=== PATIENT | female | born 1960 | race Caucasian/White ===

== ENCOUNTER → 2017-02-17 | Outpatient (CLI) | payer MEDICAID, BC ==
[2017-02-17 07:34] LABS: Basophils # (A) 0.1 k/uL (0-0.2); Basophils % (A) 1 %; Eosinophils # (A) 0.1 k/uL (0-0.7); Eosinophils % (A) 2 %; HCT 41.7 % (34.0-46.0); HDW 2.97; HGB 14.7 gm/dL (11.4-16.0); Luc # (Auto) 0.18; Luc % (Auto) 3; Lymphocytes # (A) 1.8 k/uL (1.0-4.8); Lymphocytes % (A) 31 %; MCH 30.4 pg (25.0-35.0); MCHC 35.2 g/dL (31.0-37.0); MCV 86.4 fL (80.0-100.0); Mean Platelet Volume 6.5; Monocytes # (A) 0.4 k/uL (0-1.0); Monocytes % (A) 7 %; Neutrophils # (A) 3.2 k/uL (1.3-7.7); Neutrophils % (A) 56 %; RBC 4.83 m/uL (3.80-5.40); WBC 5.7 k/uL (3.8-10.6); WBC (Perox) 5.69
[2017-02-17 07:52] LABS: ALT 42 U/L (9-52); AST 28 U/L (14-36); Alkaline Phosphatase 73 U/L (38-126); Anion Gap 9 mmol/L; Blood Urea Nitrogen 15 mg/dL (7-17); Calcium 9.6 mg/dL (8.4-10.2); Carbon Dioxide 29 mmol/L (22-30); Chloride 104 mmol/L (98-107); Cholesterol 162 mg/dL (<200); Glucose 92 mg/dL (74-99); HDL Cholesterol 39 mg/dL (40-60); Non-African American GFR(MDRD) >60 (>60 ml/min/1.73 sqM); Potassium 4.2 mmol/L (3.5-5.1); Sodium 142 mmol/L (137-145); Total Bilirubin 0.8 mg/dL (0.2-1.3); Total Protein 7.3 g/dL (6.3-8.2); Triglycerides 304 mg/dL (<150)
== END | disposition home or self-care (01) ==
LOC: LABWHC1 06:51
PROVIDERS: ATTEND Family Medicine
DX: Z00.00 Encounter for general adult medical examination without abnormal findings (principal); E55.9 Vitamin D deficiency, unspecified
CPT/HCPCS: 36415; 80053; 80061; 82306; 84443; 85025

== ENCOUNTER → 2017-03-18 | Outpatient (CLI) | payer MEDICAID, BC ==
--- NOTE | 2017-03-18 10:20 | BD ---
EXAMINATION TYPE: MG DEXA axial skeleton. DATE OF EXAM: 03/18/2017 CLINICAL HISTORY: Z78.0 POST MENOPAUSAL Height: 63 inches Weight: 134 FRAX RISK QUESTIONS: Alcohol (3 or more units per day): no Family History (Parent hip fracture): no Glucocorticoids (More than 3mos): no (Ex: prednisone, prednisolone, methylprednisolone, dexamethasone, and hydrocortisone). History of Fracture in Adulthood: no Secondary Osteoporosis: 1. Type 1 Diabetes: no 2. Hyperthyroidism: no 3. Menopause before 45: yes 4. Malnutrition: no 5. Chronic liver disease: no Rheumatoid Arthritis: no Current Tobacco Use: no RISK FACTORS HISTORY OF: Hip Fracture (Right/Left): no Spine Fracture: no History of Wrist Fracture: no Surgery to Spine/Hip(right/left)/Wrist (right/left): no Family History of Osteoporosis: yes, sister Active: yes Diet low in dairy products/other sources of calcium: yogart serving about every other day Postmenopausal woman: yes Take estrogen and/or progesterone medications: no Lost more than 2 inches in height since high school: no Frequent falls: no Poor Health: no Hyperparathyroidism: no Adrenal Insufficiency: no MEDICATIONS: Prednisone or other steroids: no Thyroid Medications: no Osteoporosis Medications: possibly, unsure Which medication:p[ossibly Fosamax How Long: about a year or less Additional Medications: Vitamin D EXAM MEASUREMENTS: Bone mineral densitometry was performed using the [employer] System. Bone mineral density as measured about the Lumbar spine is: ----- L1-L4(G/cm2): 0.880 T Score Values are as follows: ----- L2: -2.8 ----- L3: -2.4 ----- L4: -2.8 ----- L1-L4: -2.5 Bone mineral density has: Decreased -8.6% since study of: 01/25/2012 Bone mineral density about the R hip (g/cm2): 0.758 Bone mineral density about the L hip (g/cm2): 0.756 T Score values are as follows: -----R Neck: -2.0 -----L Neck: -2.0 -----R Total: -1.9 -----L Total: -2.0 Bone mineral density has: Decreased -4.9% since study of: 01/25/2012 IMPRESSION: Osteopenia (T Score between -2.5 and -1 as noted by T score values L3, Bilateral Necks & Bilatera l Totals There is slightly increased risk of fracture and the patient may be considered for treatment. Re-Screen 2-5 years. Osteoporosis (T Score less than -2.5) as noted by T Score values at the L2 & L4 There is increased fracture risk and therapy is usually indicated based on age. Re-Screen 1-2 years. NOTE: T-SCORE=SD OF THE YOUNG ADULT MEAN.
== END | disposition home or self-care (01) ==
LOC: RADBDWWP 09:17
PROVIDERS: ATTEND Family Medicine
DX: M85.80 Other specified disorders of bone density and structure, unspecified site (principal); M81.0 Age-related osteoporosis without current pathological fracture; Z78.0 Asymptomatic menopausal state
CPT/HCPCS: 77080

== ENCOUNTER → 2017-11-29 | Outpatient (CLI) | payer MEDICAID, BC ==
--- NOTE | 2017-11-30 10:55 | MR ---
EXAMINATION TYPE: MR ankle RT wo con DATE OF EXAM: 11/29/2017 COMPARISON: NONE HISTORY: Right ankle pain for one month with congenital pes planus deformity Standard multiplanar, multisequence MRI departmental protocol Multiplanar, multisequence images of the right ankle were acquired. FINDINGS: Distal Achilles tendon is intact. There is some intermediate signal and thickening of the p lantar fascia at inferior calcaneal attachment with surrounding fluid this is seen best sagittal imag es 9 and 10. The peroneal tendons are likely intact. There is difficulty visualizing distal PL tendon which is bes t seen on sagittal and coronal images. Flexor tendons posterior medially are intact. Mild fluid surrounds PT tendon at level of the subtalar joint seen best sagittal image 6 and axial image 11. Normal sinus tarsi fat is present. Some heterogeneity of bone marrow signal intensity is felt to refl ect red marrow reconversion. No suspicious edema is noted. Ankle mortise symmetry is maintained. No s ignificant soft tissue swelling or joint effusion is present. The anterior tibiofibular and anterior talofibular ligaments are intact. The medial deltoid ligament is intact. Hindfoot and midfoot articulations are maintained. IMPRESSION: MRI findings consistent with plantar fasciitis as detailed above. Possible mild tenosynovitis PT tend on. No ligamentous or tendon tear identified.
== END | disposition home or self-care (01) ==
LOC: RADMRIMAIN 11:00
PROVIDERS: ATTEND Orthopaedic Surgery
DX: M79.671 Pain in right foot (principal); Q66.7 Congenital pes cavus

== ENCOUNTER → 2018-01-01 | Outpatient (CLI) | payer MEDICAID, BC ==
[2018-01-01 10:57] LABS: HCT 40.6 % (34.0-46.0); HGB 14.7 gm/dL (11.4-16.0); Hyperchromasia Slight; MCH 30.2 pg (25.0-35.0); MCHC 36.2 g/dL (31.0-37.0); MCV 83.4 fL (80.0-100.0); Mean Platelet Volume 6.4; Platelet Count 203 k/uL (150-450); RBC 4.87 m/uL (3.80-5.40); RDW 12.5 % (11.5-15.5); WBC 6.6 k/uL (3.8-10.6)
[2018-01-01 11:11] LABS: ALT 41 U/L (9-52); AST 27 U/L (14-36); Albumin 4.6 g/dL (3.5-5.0); Alkaline Phosphatase 59 U/L (38-126); Anion Gap 13 mmol/L; Blood Urea Nitrogen 16 mg/dL (7-17); Calcium 9.8 mg/dL (8.4-10.2); Carbon Dioxide 29 mmol/L (22-30); Chloride 102 mmol/L (98-107); Creatine Kinase 79 U/L (30-135); Glucose 85 mg/dL (74-99); Sodium 144 mmol/L (137-145); Total Bilirubin 0.4 mg/dL (0.2-1.3); Total Protein 7.1 g/dL (6.3-8.2)
[2018-01-01 11:27] LABS: Creatine Kinase MB 0.6 ng/mL (0.0-2.4); Troponin I <0.012 ng/mL (0.000-0.034)
== END | disposition home or self-care (01) ==
LOC: LABMAIN 09:17
PROVIDERS: ATTEND Emergency Medicine
DX: R07.9 Chest pain, unspecified (principal)
CPT/HCPCS: 36415; 80053; 82550; 82553; 84443; 84484; 85027

== ENCOUNTER 2018-09-24 07:49 | Emergency (ER) | payer BC, MEDICAID ==
[2018-09-24 07:53] VITALS: TEMP 97.5
[2018-09-24] MEDS ORDERED: MECLIZINE 25 MG TAB PO STA (08:11)
[2018-09-24] MEDS ORDERED: ONDANSETRON 4 MG/2 ML VIAL IVP STA (08:11)
[2018-09-24] MEDS ORDERED: DIAZEPAM 5 MG/ML 2 ML INJ IVP STA (08:11)
--- NOTE | 2018-09-24 08:13 | ED ---
General Adult HPI - General Chief complaint: Dizziness Stated complaint: Vertigo Time Seen by Provider: 09/24/18 07:50 Source: patient, RN notes reviewed Mode of arrival: wheelchair Limitations: no limitations - History of Present Illness Initial comments: This is a 57-year-old female presents emergency Department with a past medical history significant for vertigo. Patient states last night at 6:00 the room started to spin and she has been dealing with the spinning is since that time. Patient states is extremely nauseated. Patient states if she stays still and keeps her eyes shut the symptoms are better but not gone. Patient denies any headache patient denies any numbness or weakness. Patient states she can open her eyes because room still moving. Patient denies any chest pain palpitations difficulty breathing shortness of breath. Patient denies any abdominal pain. Patient denies any recent fever chills. - Related Data Home Medications Medication Instructions Recorded Confirmed Ca/D3/Mag/Zinc/Deshawn/Dion/Mgbor 1 each PO DAILY 09/23/15 09/24/18 [Caltrate 600+D3+Min Chew Tab] Krill/Om-3/Dha/Epa/Phospho/Ast 1 each PO DAILY 09/23/15 09/24/18 [[place]-3 Krill Oil 300 mg Sfgl] Multivitamins, Thera [Theragran] 1 each PO DAILY 09/23/15 09/24/18 Ibuprofen [Motrin Ib] 400 mg PO Q6H PRN 09/24/18 09/24/18 Previous Rx's Medication Instructions Recorded Meclizine [Antivert] 25 mg PO TID #20 tab 09/24/18 Allergies Allergy/AdvReac Type Severity Reaction Status Date / Time Penicillins Allergy Unknown Verified 09/24/18 08:19 Review of Systems ROS Statement: Those systems with pertinent positive or pertinent negative responses have been documented in the HPI. ROS Other: All systems not noted in ROS Statement are negative. Past Medical History Additional Past Medical History / Comment(s): back/neck pain History of Any Multi-Drug Resistant Organisms: None Reported Past Surgical History: Hysterectomy Past Psychological History: No Psychological Hx Reported Smoking Status: Never smoker Past Alcohol Use History: None Reported Past Drug Use History: None Reported General Exam - General Exam Comments Initial Comments: GENERAL: Patient is well-developed and well-nourished. Patient is nontoxic and well- hydrated and is in moderate distress. ENT: Neck is soft and supple. No significant lymphadenopathy is noted. Oropharynx is clear. Moist mucous membranes. Neck has full range of motion without eliciting any pain. EYES: The sclera were anicteric and conjunctiva were pink and moist. Extraocular movements were intact and pupils were equal round and reactive to light. Eyelids were unremarkable. PULMONARY: Unlabored respirations. Good breath sounds bilaterally. No audible rales rhonchi or wheezing was noted. CARDIOVASCULAR: There is a regular rate and rhythm without any murmurs gallops or rubs. ABDOMEN: Soft and nontender with normal bowel sounds. No palpable organomegaly was noted. There is no palpable pulsatile mass. SKIN: Skin is clear with no lesions or rashes and otherwise unremarkable. NEUROLOGIC: Patient is alert and oriented x3. Cranial nerves II through XII are grossly intact. Motor and sensory are also intact. Normal speech, volume and content. Symmetrical smile. Initially patient is unable to do cerebellar testing because she can't open her eyes long enough. MUSCULOSKELETAL: Normal extremities with adequate strength and full range of motion. LYMPHATICS: No significant lymphadenopathy is noted PSYCHIATRIC: Normal psychiatric evaluation. Limitations: no limitations Course Vital Signs 09/24/18 09/24/18 09/24/18 07:50 08:02 08:30 Temperature 97.5 F L Pulse Rate 77 85 74 Respiratory 18 31 H 23 Rate Blood Pressure 164/88 150/92 O2 Sat by Pulse 100 67 L Oximetry 09/24/18 09/24/18 09/24/18 09:00 09:30 10:00 Temperature Pulse Rate 66 65 65 Respiratory 18 20 15 Rate Blood Pressure 147/91 137/84 130/81 O2 Sat by Pulse 99 98 Oximetry 09/24/18 09/24/18 10:30 11:00 Temperature Pulse Rate 64 63 Respiratory 17 21 Rate Blood Pressure 129/77 152/84 O2 Sat by Pulse 98 Oximetry Medical Decision Making - Medical Decision Making EKG shows normal sinus rhythm at 67 bpm NH interval is 166 QRS is 90 QT interval 438 QTC is 462. Patient's EKG shows no ST segment elevation or depression or T wave abnormalities are noted. Computed tomography scan of the brain shows no acute abnormality. Patient felt better after the Antivert and Valium. Patient still had some dizziness I gave her scopolamine patch. Patient was able to ambulate but still felt somewhat dizzy but could not go home at this time. - Lab Data Result diagrams: 09/24/18 08:12 09/24/18 08:12 Lab Results 09/24/18 09/24/18 09/24/18 Range/Units 08:12 08:12 08:12 WBC 6.8 (3.8-10.6) k/uL RBC 5.15 (3.80-5.40) m/uL Hgb 15.3 (11.4-16.0) gm/dL Hct 43.8 (34.0-46.0) % MCV 85.0 (80.0-100.0) fL MCH 29.7 (25.0-35.0) pg MCHC 35.0 (31.0-37.0) g/dL RDW 12.8 (11.5-15.5) % Plt Count 197 (150-450) k/uL Neutrophils % 63 % Lymphocytes % 28 % Monocytes % 5 % Eosinophils % 1 % Basophils % 1 % Neutrophils # 4.3 (1.3-7.7) k/uL Lymphocytes # 1.9 (1.0-4.8) k/uL Monocytes # 0.3 (0-1.0) k/uL Eosinophils # 0.1 (0-0.7) k/uL Basophils # 0.0 (0-0.2) k/uL PT (9.0-12.0) sec INR (<1.2) APTT (22.0-30.0) sec Sodium 141 (137-145) mmol/L Potassium 3.9 (3.5-5.1) mmol/L Chloride 106 (98-107) mmol/L Carbon Dioxide 23 (22-30) mmol/L Anion Gap 12 mmol/L BUN 15 (7-17) mg/dL Creatinine 0.57 (0.52-1.04) mg/dL Est GFR (CKD-EPI)AfAm >90 (>60 ml/min/1.73 sqM) Est GFR (CKD-EPI)NonAf >90 (>60 ml/min/1.73 sqM) Glucose 119 H (74-99) mg/dL Calcium 10.2 (8.4-10.2) mg/dL Magnesium 1.7 (1.6-2.3) mg/dL Total Bilirubin 0.5 (0.2-1.3) mg/dL AST 32 (14-36) U/L ALT 48 (9-52) U/L Alkaline Phosphatase 68 (38-126) U/L Total Creatine Kinase 65 (30-135) U/L CK-MB (CK-2) 0.4 (0.0-2.4) ng/mL CK-MB (CK-2) Rel Index 0.6 Troponin I <0.012 (0.000-0.034) ng/mL Total Protein 7.4 (6.3-8.2) g/dL Albumin 4.7 (3.5-5.0) g/dL Urine Color Urine Appearance (Clear) Urine pH (5.0-8.0) Ur Specific [place] (1.001-1.035) Urine Protein (Negative) Urine Glucose (UA) (Negative) Urine Ketones (Negative) Urine Blood (Negative) Urine Nitrite (Negative) Urine Bilirubin (Negative) Urine Urobilinogen (<2.0) mg/dL Ur Leukocyte Esterase (Negative) Urine WBC (0-5) /hpf Ur Squamous Epith Cells (0-4) /hpf Amorphous Sediment (None) /hpf Urine Mucus (None) /hpf 09/24/18 09/24/18 Range/Units 08:12 10:45 WBC (3.8-10.6) k/uL RBC (3.80-5.40) m/uL Hgb (11.4-16.0) gm/dL Hct (34.0-46.0) % MCV (80.0-100.0) fL MCH (25.0-35.0) pg MCHC (31.0-37.0) g/dL RDW (11.5-15.5) % Plt Count (150-450) k/uL Neutrophils % % Lymphocytes % % Monocytes % % Eosinophils % % Basophils % % Neutrophils # (1.3-7.7) k/uL Lymphocytes # (1.0-4.8) k/uL Monocytes # (0-1.0) k/uL Eosinophils # (0-0.7) k/uL Basophils # (0-0.2) k/uL PT 10.0 (9.0-12.0) sec INR 0.9 (<1.2) APTT 23.3 (22.0-30.0) sec Sodium (137-145) mmol/L Potassium (3.5-5.1) mmol/L Chloride (98-107) mmol/L Carbon Dioxide (22-30) mmol/L Anion Gap mmol/L BUN (7-17) mg/dL Creatinine (0.52-1.04) mg/dL Est GFR (CKD-EPI)AfAm (>60 ml/min/1.73 sqM) Est GFR (CKD-EPI)NonAf (>60 ml/min/1.73 sqM) Glucose (74-99) mg/dL Calcium (8.4-10.2) mg/dL Magnesium (1.6-2.3) mg/dL Total Bilirubin (0.2-1.3) mg/dL AST (14-36) U/L ALT (9-52) U/L Alkaline Phosphatase (38-126) U/L Total Creatine Kinase (30-135) U/L CK-MB (CK-2) (0.0-2.4) ng/mL CK-MB (CK-2) Rel Index Troponin I (0.000-0.034) ng/mL Total Protein (6.3-8.2) g/dL Albumin (3.5-5.0) g/dL Urine Color Light Yellow Urine Appearance Cloudy H (Clear) Urine pH 7.5 (5.0-8.0) Ur Specific [place] 1.004 (1.001-1.035) Urine Protein Negative (Negative) Urine Glucose (UA) Negative (Negative) Urine Ketones Negative (Negative) Urine Blood Negative (Negative) Urine Nitrite Negative (Negative) Urine Bilirubin Negative (Negative) Urine Urobilinogen <2.0 (<2.0) mg/dL Ur Leukocyte Esterase Negative (Negative) Urine WBC 2 (0-5) /hpf Ur Squamous Epith Cells 1 (0-4) /hpf Amorphous Sediment Moderate H (None) /hpf Urine Mucus Rare H (None) /hpf Disposition Clinical Impression: Vertigo Disposition: HOME SELF-CARE Condition: Good Instructions: Vertigo (ED) Prescriptions: Meclizine [Antivert] 25 mg PO TID #20 tab Is patient prescribed a controlled substance at d/c from ED?: No Referrals: Inderjit Rosado MD [Primary Care Provider] - 1-2 days Time of Disposition: 12:26
[2018-09-24] MEDS ORDERED: SODIUM CHLORIDE 0.9% 1,000 ML IV ONE (08:17)
--- NOTE | 2018-09-24 09:15 | XR ---
EXAMINATION TYPE: XR chest 2V DATE OF EXAM: 09/24/2018 HISTORY: Chest Pain. REFERENCE: Previous study dated 07/27/2010. FINDINGS: Is a small amount of left lingular atelectasis. Lungs otherwise clear. Pleural spaces are c lear. The heart is not enlarged. IMPRESSION: MINIMAL ATELECTASIS, LEFT LINGULA.
[2018-09-24 09:34] LABS: Basophils % (A) 1 %; Eosinophils # (A) 0.1 k/uL (0-0.7); Eosinophils % (A) 1 %; HCT 43.8 % (34.0-46.0); HGB 15.3 gm/dL (11.4-16.0); Lymphocytes # (A) 1.9 k/uL (1.0-4.8); Lymphocytes % (A) 28 %; MCH 29.7 pg (25.0-35.0); Mean Platelet Volume 6.9; Monocytes # (A) 0.3 k/uL (0-1.0); Monocytes % (A) 5 %; Neutrophils # (A) 4.3 k/uL (1.3-7.7); Neutrophils % (A) 63 %; Platelet Count 197 k/uL (150-450); RBC 5.15 m/uL (3.80-5.40); RDW 12.8 % (11.5-15.5); WBC 6.8 k/uL (3.8-10.6)
[2018-09-24 09:43] LABS: INR 0.9 (<1.2); Partial Thromboplastin Time 23.3 sec (22.0-30.0)
[2018-09-24 09:45] LABS: ALT 48 U/L (9-52); AST 32 U/L (14-36); Albumin 4.7 g/dL (3.5-5.0); Alkaline Phosphatase 68 U/L (38-126); Anion Gap 12 mmol/L; Blood Urea Nitrogen 15 mg/dL (7-17); Calcium 10.2 mg/dL (8.4-10.2); Carbon Dioxide 23 mmol/L (22-30); Chloride 106 mmol/L (98-107); Glucose 119 mg/dL (74-99); Magnesium 1.7 mg/dL (1.6-2.3); Potassium 3.9 mmol/L (3.5-5.1); Sodium 141 mmol/L (137-145); Total Bilirubin 0.5 mg/dL (0.2-1.3); Total Protein 7.4 g/dL (6.3-8.2)
[2018-09-24 10:05] LABS: Creatine Kinase 65 U/L (30-135)
[2018-09-24 10:18] LABS: Creatine Kinase MB 0.4 ng/mL (0.0-2.4); Troponin I <0.012 ng/mL (0.000-0.034)
--- NOTE | 2018-09-24 10:23 | CT ---
EXAMINATION TYPE: CT brain wo con DATE OF EXAM: 09/24/2018 COMPARISON: NONE HISTORY: Dizziness. CT DLP: 1099.40 mGycm Automated exposure control for dose reduction was used. FINDINGS: Central structures are midline. There is no evidence of hydrocephalus. No acute focal lesion, mass ef fect or midline shift is seen. I do not see evidence of intracranial blood. Visualized portions of the paranasal sinuses and mastoids are clear. The bony calvarium is intact. IMPRESSION: NORMAL CT SCAN OF THE BRAIN.
[2018-09-24] MEDS ORDERED: SCOPOLAMINE 1.5MG/72HR PATCH TRANSDERM STA (10:49)
[2018-09-24 11:07] LABS: Amorphous Sediment,Urine Moderate /hpf; Appearance,Urine Cloudy (Clear); Bilirubin,Urine Negative (Negative); Blood,Urine Negative (Negative); Color,Urine Light Yellow; Glucose,Urine (UA) Negative (Negative); Ketones,Urine Negative (Negative); Leukocyte Esterase,Urine Negative (Negative); Mucus,Urine Rare /hpf; Nitrite,Urine Negative (Negative); PH, Urine 7.5 (5.0-8.0); Protein,Urine Negative (Negative); Specific Gravity,Urine 1.004 (1.001-1.035); Squamous Epithelial Cell,Urine 1 /hpf (0-4); Urobilinogen,Urine <2.0 mg/dL (<2.0); WBC,Urine 2 /hpf (0-5)
[2018-09-24 13:03] VITALS: BP 132/80; PULSE 77; RESP 20
== END 2018-09-24 13:01 | disposition home or self-care (01) ==
LOC: EC 07:49
DX: R42 Dizziness and giddiness (principal); R11.0 Nausea; Z88.0 Allergy status to penicillin
CPT/HCPCS: 99284; 96374; 96375; 96361; 36415; 93005; 80053; 82550; 82553; 83735; 84484; 85025; 85610; 85730; 81001; 71046; 70450; J3360; J2405

== ENCOUNTER → 2018-10-05 | Outpatient (CLI) | payer BC ==
[2018-10-05 11:40] VITALS: BP 140/73; PULSE 95; RESP 18; TEMP 98.1; BMI 24.0
--- NOTE | 2018-10-05 12:38 | P.HPOB ---
History of Present Illness H&P Date: 10/05/18 Chief Complaint: The patient is here for her routine gynecologic exam and mammogram. This is a 57-year-old (had twins) with an LMP of 1996. She is status post CARLOS and later RSO for benign reasons. The patient continues to have occasional hot flashes that are variable. She believes she went through the menopausal change at age 52. She was started on Fosamax in August 2017 for osteoporosis. She states she use this for about 2 months but developed fairly severe heartburn and, therefore, discontinued the medication. Review of Systems The patient's weight has been stable over the last year. She denies respiratory , cardiac, or G.I. problems. Neuro: she has had vertigo during the past 12 days and is undergoing a workup for this. Past Medical History Past Medical History: No Reported History Additional Past Medical History / Comment(s): back/neck pain. 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 She had a CARLOS and later RSO for benign reasons. History of Any Multi-Drug Resistant Organisms: None Reported Past Surgical History: Breast Surgery, Hysterectomy (CARLOS 1996) Additional Past Surgical History / Comment(s): [id number]. Bilateral breast implants placed in 2007 and these were removed in 2018. Abdominoplasty 2007. Colonoscopy 2016(2nd-next 5yrs). 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 - Past Family History Mother Family Medical History: Cancer (Colon cancer) Additional Family Medical History / Comment(s): Uncles and grandmother had diabetes. Sister(s) Additional Family Medical History / Comment(s): Precancerous colon polyps. Medications and Allergies Home Medications Medication Instructions Recorded Confirmed Type Krill/Om-3/Dha/Epa/Phospho/Ast 1 each PO DAILY 09/23/15 10/05/18 History [[place]-3 Krill Oil 300 mg Sfgl] Multivitamins, Thera [Theragran] 1 each PO DAILY 09/23/15 10/05/18 History Ibuprofen [Motrin Ib] 400 mg PO Q6H PRN 09/24/18 10/05/18 History Meclizine [Antivert] 25 mg PO TID #20 tab 09/24/18 10/05/18 Rx Allergies Allergy/AdvReac Type Severity Reaction Status Date / Time Penicillins Allergy Unknown Verified 10/05/18 11:32 Exam Vital Signs Temp Pulse Resp BP Pulse Ox 10/05/18 11:33 98.1 F 95 18 140/73 98 Intake and Output 10/04/18 10/05/18 10/05/18 22:59 06:59 14:59 Other: Weight 61.689 kg Height 5'3", weight 136 pounds, BMI 24.1. This is a well-developed well-nourished white female who is alert and oriented times 3 in no acute distress. HEENT: Within normal limits. NECK: Supple without mass or thyromegaly. CHEST AND LUNGS: Clear to auscultation. HEART: Regular rate and rhythm. BREASTS: Are without mass or discharge. AXILLARY EXAM: Negative for adenopathy. BACK: Negative for CVA tenderness. ABDOMEN: Soft, nontender, without palpable masses. PELVIC EXAM: External genitalia appears normal with mild atrophy. Vagina appears normal mild atrophy. There is no evidence of prolapse. Bimanual examination is negative for mass or tenderness. RECTAL EXAM: Rectovaginal exam is negative for mass or tenderness and is negative for occult blood. EXTREMITIES: Nontender. IMPRESSION: 1. 57-year-old menopausal female who is status post CARLOS and later RSO for benign reasons with normal gynecologic exam. 2. History of osteoporosis with G.I. intolerance to Fosamax. Fosamax was discontinued after 2 months. The patient is refusing other prescription medications. PLAN: 1. Pap smears have been discontinued. 2. Self breast awareness was discussed with the patient. 3. Screening mammogram will be done today. 4. Osteoporosis management was discussed. I have stressed the importance of adequate calcium, vitamin D and regular exercise. Recommended amounts of calcium and vitamin D were also discussed. We had a long discussion regarding different therapeutic options including non-bisphosphonate medications such as Evista and Prolia. She is declining all prescription medications at this time. She was instructed to call if she changes her mind. I've also suggested repeating the bone density test in one year, if this would help her to decide about medications. She understands that she is at a greater risk for bone fracture. We have discussed ways of reducing the risk of bone fracture and ways to avoid falling. 5. She will return in one year.
--- NOTE | 2018-10-10 07:44 | MM ---
Reason for exam: screening (asymptomatic). Last mammogram was performed 1 year and 2 months ago. History: Patient is postmenopausal. Implant Removal of both breasts, April 01, 2018. Retro-pectoral silicone gel implants in both breasts, December 2007. MG 3D Screening Mammo W/Cad Bilateral CC and MLO view(s) were taken. Prior study comparison: August 18, 2017, bilateral MG 3d screen mammo imp/cad. August 05, 2016, bilateral MG 3d screen mammo imp/cad. The breast tissue is heterogeneously dense. This may lower the sensitivity of mammography. No suspicious abnormality. Bilateral retropecteral silicone implants present on priors have been removed. No significant changes when compared with prior studies. ASSESSMENT: Negative, BI-RAD 1 RECOMMENDATION: Routine screening mammogram of both breasts in 1 year.
== END | disposition home or self-care (01) ==
LOC: WWCWWP 11:07
PROVIDERS: ATTEND Obstetrics & Gynecology
DX: Z12.31 Encounter for screening mammogram for malignant neoplasm of breast (principal)
CPT/HCPCS: 77063; 77067

== ENCOUNTER → 2019-02-09 | Outpatient (CLI) | payer BC ==
[2019-02-09 07:24] LABS: Basophils # (A) 0.1 k/uL (0-0.2); Basophils % (A) 1 %; Eosinophils # (A) 0.1 k/uL (0-0.7); Eosinophils % (A) 2 %; HCT 43.3 % (34.0-46.0); HGB 14.6 gm/dL (11.4-16.0); Lymphocytes % (A) 35 %; MCH 28.9 pg (25.0-35.0); MCHC 33.7 g/dL (31.0-37.0); MCV 85.7 fL (80.0-100.0); Mean Platelet Volume 6.8; Monocytes # (A) 0.4 k/uL (0-1.0); Monocytes % (A) 6 %; Neutrophils % (A) 53 %; Platelet Count 211 k/uL (150-450); RBC 5.05 m/uL (3.80-5.40); RDW 14.1 % (11.5-15.5); WBC 5.7 k/uL (3.8-10.6)
[2019-02-09 11:53] LABS: Albumin 4.5 g/dL (3.80-4.90); Albumin/Globulin Ratio 2.5 (1.60-3.17); Anion Gap 6.9 mmol/L (4.00-12.00); Calcium 9.5 mg/dL (8.7-10.3); Carbon Dioxide 27.1 mmol/L (21.6-31.8); Globulin 1.8 g/dL (1.6-3.3); LDL Cholesterol,Calculated 93.4 mg/dL (0.0-131.0); Potassium 4.3 mmol/L (3.5-5.5); Total Bilirubin 0.5 mg/dL (0.3-1.2); Total Protein 6.3 g/dL (6.2-8.2); VLDL Calculation 43.6 mg/dL (5.00-40.00)
== END | disposition home or self-care (01) ==
LOC: LABWHC1 06:51
PROVIDERS: ATTEND Family Medicine
DX: Z00.00 Encounter for general adult medical examination without abnormal findings (principal); E55.9 Vitamin D deficiency, unspecified
CPT/HCPCS: 36415; 80053; 80061; 82306; 84443; 85025

== ENCOUNTER → 2020-06-25 | Outpatient (CLI) | payer BC ==
[2020-06-25 14:15] VITALS: BP 119/78; PULSE 72; RESP 18; TEMP 98.2
--- NOTE | 2020-06-25 14:53 | P.HPOB ---
History of Present Illness H&P Date: 06/25/20 Chief Complaint: The patient is here for her routine gynecologic exam and ma mmogram. This is a 59-year-old with an LMP of 1996. The patient is status post CARLOS and later RSO for benign reasons. The patient continues to have some hot flashes that are tolerable. She is been having menopausal symptoms since about age 52. She is without gynecologic complaints. Review of Systems The patient has gained 3 pounds over the last year. She denies respiratory, cardiac, or G.I. problems. Past Medical History Past Medical History: No Reported History Additional Past Medical History / Comment(s): back/neck pain. 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 She had a CARLOS and later RSO for benign reasons. History of Any Multi-Drug Resistant Organisms: None Reported Past Surgical History: Breast Surgery, Hysterectomy Additional Past Surgical History / Comment(s): CARLOS 1996. RSO 1997. Bilateral b reast implants placed in 2007 and these were removed in 2018. Abdominoplasty 2007. Colonoscopy 2016(2nd-next 5yrs). 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 - Past Family History Mother Family Medical History: Cancer Additional Family Medical History / Comment(s): Colon cancer. Uncles and grandmother had diabetes. Sister(s) Additional Family Medical History / Comment(s): Precancerous colon polyps. Medications and Allergies Home Medications Medication Instructions Recorded Confirmed Type Ibuprofen [Motrin Ib] 400 mg PO Q6H PRN 09/24/18 06/25/20 History Allergies Allergy/AdvReac Type Severity Reaction Status Date / Time Penicillins Allergy Unknown Verified 06/25/20 14:09 Exam Vital Signs Temp Pulse Resp BP Pulse Ox 06/25/20 14:13 98.2 F 72 18 119/78 96 Intake and Output 06/24/20 06/25/20 06/25/20 22:59 06:59 14:59 Other: Weight 63.049 kg Height 5 feet 3-1/2 inches, weight 139 pounds, BMI 24.2. This is a well-developed well-nourished white female who is alert and oriented times 3 in no acute distress. HEENT: Within normal limits. NECK: Supple without mass or thyromegaly. CHEST AND LUNGS: Clear to auscultation. HEART: Regular rate and rhythm. BREASTS: Are without mass or discharge. AXILLARY EXAM: Negative for adenopathy. BACK: Negative for CVA tenderness. ABDOMEN: Soft, nontender, without palpable masses. PELVIC EXAM: External genitalia appears normal with minimal atrophy. Vagina appears normal with minimal atrophy. There is no evidence of prolapse. Bimanual examination is negative for mass or tenderness. RECTAL EXAM: Rectovaginal exam is negative for mass or tenderness and is negative for occult blood. EXTREMITIES: Nontender. IMPRESSION: 1. 59-year-old menopausal female status post CARLOS and later RSO for benign reasons with normal gynecologic exam. 2. History of osteoporosis status post brief use of Fosamax which was discontinued because of GI intolerance. The patient is declining any prescrip tion treatment at this time. PLAN: 1. Pap smears have been discontinued. 2. Self breast awareness was discussed with the patient. 3. Screening mammogram will be done today. 4. Osteoporosis management was discussed. I have stressed the importance of adequate calcium, vitamin D and regular exercise. Recommended amounts of calcium and vitamin D were also discussed. She again is declining prescription treatment at this time. She states she is willing to repeat the bone density testing and will reconsider osteoporosis treatment after the bone density testing has been done. The order slip was given to the patient for this. She understands that her risk for fracture of bone is significantly increased. She also understands she should take whatever precautions are needed to avoid falling. 5. She was advised to return in one year for her annual well woman exam.
--- NOTE | 2020-06-27 11:23 | MM ---
Reason for exam: screening (asymptomatic). Last mammogram was performed 1 year and 9 months ago. History: Patient is postmenopausal. Implant Removal of both breasts, April 01, 2018. Retro-pectoral silicone gel implants in both breasts, December 2007. Physical Findings: A clinical breast exam by your physician is recommended on an annual basis and results should be correlated with mammographic findings. MG 3D Screening Mammo W/Cad Bilateral CC and MLO view(s) were taken. Prior study comparison: October 05, 2018, bilateral MG 3d screening mammo w/cad. August 18, 2017, bilateral MG 3d screen mammo imp/cad. The breast tissue is heterogeneously dense. This may lower the sensitivity of mammography. No significant changes when compared with prior studies. ASSESSMENT: Benign, BI-RAD 2 RECOMMENDATION: Routine screening mammogram of both breasts in 1 year.
== END | disposition home or self-care (01) ==
LOC: WWCWWP 13:59
PROVIDERS: ATTEND Obstetrics & Gynecology
DX: Z12.31 Encounter for screening mammogram for malignant neoplasm of breast (principal)
CPT/HCPCS: 77063; 77067

== ENCOUNTER → 2020-10-10 | Outpatient (CLI) | payer BC ==
--- NOTE | 2020-10-10 19:55 | BD ---
EXAMINATION TYPE: Axial Bone Density DATE OF EXAM: 10/10/2020 COMPARISON: 03.18.2017 CLINICAL HISTORY: 59 YR OLD FEMALE.....ICD-10 CODE: Z78.0 POST MENOPAUSAL, M81.0 OSTEOPOROSIS Height: 62.5 Weight: 136 FRAX RISK QUESTIONS: NOTHING TO NOTE HERE RISK FACTORS HISTORY OF: Postmenopausal woman: YES AT AGE 52 Hyperparathyroidism: NO Adrenal Insufficiency: NO MEDICATIONS: Additional Medications: CENTRUM AND VIT D Additional History: NOTHING ADDITIONAL TO NOTE HERE EXAM MEASUREMENTS: Bone mineral densitometry was performed using the [employer] System. Bone mineral density as measured about the Lumbar spine is: ----- L1-L4(G/cm2): 0.848 T Score Values are as follows: ----- L1: -2.3 ----- L2: -3.1 ----- L3: -2.6 ----- L4: -3.1 ----- L1-L4: -2.8 Bone mineral density has: Decreased -4.3% since study of: 03.18.2017 Bone mineral density about the R hip (g/cm2): 0.775 Bone mineral density about the L hip (g/cm2): 0.756 T Score values are as follows: -----R Neck: -2.2 -----L Neck: -2.3 -----R Total: -1.8 -----L Total: -2.0 Bone mineral density has: Increased 0.4% since study of: 03.18.2017 FRAX%s: THERE IS A 10.5% CHANCE FOR A MAJOR OSTEOPOROTIC FX AND A 1.8% FOR HIP.....PROBABILITY FOR FX IN 10 YRS TIME IMPRESSION: Osteoporosis (T Score less than -2.5). There is increased fracture risk and therapy is usually indicated based on age. Re-Screen 1-2 years. NOTE: T-SCORE=SD OF THE YOUNG ADULT MEAN.
== END | disposition home or self-care (01) ==
LOC: RADBDWWP 07:54
PROVIDERS: ATTEND Obstetrics & Gynecology
DX: M81.0 Age-related osteoporosis without current pathological fracture (principal)
CPT/HCPCS: 77080

== ENCOUNTER → 2021-01-15 | Outpatient (CLI) | payer BC ==
[2021-01-15 15:00] LABS: Basophils # (A) 0.05 X 10*3/uL (0.00-0.10); Basophils % (A) 0.6 %; Eosinophils # (A) 0.09 X 10*3/uL (0.04-0.35); Eosinophils % (A) 1.2 %; HCT 42.1 % (37.2-46.3); HGB 14.2 g/dL (12.0-15.0); Lymphocytes # (A) 1.62 X 10*3/uL (0.90-5.00); Lymphocytes % (A) 20.8 %; MCH 29.3 pg (27.0-32.0); MCHC 33.7 g/dL (32.0-37.0); Mean Platelet Volume 10.2 fL (9.5-12.2); Monocytes # (A) 0.71 X 10*3/uL (0.20-1.00); Monocytes % (A) 9.1 %; Neutrophils # (A) 5.28 X 10*3/uL (1.80-7.70); Neutrophils % (A) 67.9 %; Platelet Count 207 X 10*3/uL (140-440); RBC 4.84 X 10*6/uL (4.10-5.20); RDW 12.4 % (11.5-14.5); WBC 7.78 X 10*3/uL (4.50-10.00)
[2021-01-16 00:34] LABS: African American GFR (CKD) 93.5 (60.0-200.0); Albumin 4.4 g/dL (3.80-4.90); Albumin/Globulin Ratio 2.2 (1.60-3.17); Anion Gap 12.4 mmol/L (4.00-12.00); BUN/Creat Ratio 23.75 Ratio (12.00-20.00); Calcium 9.4 mg/dL (8.7-10.3); Carbon Dioxide 23.6 mmol/L (21.6-31.8); Chol/HDL Ratio 4.63; LDL Cholesterol,Calculated 90.2 mg/dL (0.0-131.0); Non-African American GFR(CKD) 80.7 (60.0-200.0); Potassium 4.4 mmol/L (3.5-5.5); Total Bilirubin 0.6 mg/dL (0.2-1.2); Total Protein 6.4 g/dL (6.2-8.2); VLDL Calculation 47.8 mg/dL (5.00-40.00)
== END | disposition home or self-care (01) ==
LOC: LABWHC1 07:54
PROVIDERS: ATTEND Family Medicine
DX: Z00.00 Encounter for general adult medical examination without abnormal findings (principal); E55.9 Vitamin D deficiency, unspecified
CPT/HCPCS: 36415; 80053; 80061; 82306; 84443; 85025

== ENCOUNTER → 2021-06-19 | Outpatient (CLI) | payer BC ==
--- NOTE | 2021-06-19 13:15 | XR ---
EXAMINATION TYPE: XR cervical spine 5 views comp, XR shoulder complete 3 views LT DATE OF EXAM: 06/19/2021 COMPARISON: None HISTORY: 60-year-old female M54.2, neck pain, M2 5.512, left shoulder pain FINDINGS: Cervical spine: No predental space widening or prevertebral soft tissue swelling. There is some degenerative change o f the C1 dens articulation. Mild degenerative disc disease with endplate spondylosis mid and lower ce rvical spine. Scattered facet and uncovertebral joint arthropathy. Normal odontoid view. Alignment is maintained. On the right, moderate bony neuroforaminal narrowing at C3-C4 and mild at C4-C5. On the left, moderate bony neuroforaminal narrowing C7-T1 and mild at C3-C4. Left shoulder: Moderate degenerative change of the AC joint with joint space narrowing, subchondral sclerosis, and m arginal spurring. Subacromial space is preserved. No tendinous or bursal calcifications. No acute fra cture, subluxation, or dislocation. IMPRESSION: 1. Cervical spine: Mild degenerative disc disease and moderate facet/uncovertebral joint arthropathy. Moderate bony neuroforaminal narrowing on the right at C3-C4. No malalignment or prevertebral soft t issue swelling. 2. Left shoulder: Moderate AC joint OA. No acute osseous abnormality seen.
== END | disposition home or self-care (01) ==
LOC: RADXRMAIN 09:20
PROVIDERS: ATTEND Family Medicine
DX: M19.012 Primary osteoarthritis, left shoulder (principal); M50.30 Other cervical disc degeneration, unspecified cervical region; M47.812 Spondylosis without myelopathy or radiculopathy, cervical region
CPT/HCPCS: 72050

== ENCOUNTER → 2021-08-15 | Day surgery (SDC) | payer BC ==
[2021-08-14 08:56] VITALS: BMI 24.7
[~2021-08-15] MED LIST: .fentaNYL (PF) 50 MCG/ML 2 ML AMP ONE; ACETAMINOPHEN TAB 500 MG TAB ONE; ACETAMINOPHEN TAB 500 MG TAB PO PRN; BUPIVACAINE (PF) 0.25% 30 ML VIAL SQ ONE; DEXAMETHASONE SOD PHOSPHATE 4 MG/ML 1 ML VIAL IV ONE; HEPARIN SODIUM,PORCINE/PF 5,000 UNIT/0.5 ML SYRINGE SQ PRN; HYDROcodone/APAP 5-325MG 1 EACH TAB PO PRN; HYDROmorphone 0.5 MG/0.5 ML SYRINGE IVP PRN; KETAMINE 10 MG/ML 20 ML VIAL ONE; KETOROLAC 30 MG/ML 1 ML VIAL ONE; LACTATED RINGERS 1,000 ML IV SCH; MIDAZOLAM 2 MG/2 ML VIAL IV PRN; MIDAZOLAM 2 MG/2 ML VIAL ONE; NALOXONE 0.4 MG/ML 1 ML VIAL IV PRN; ONDANSETRON 4 MG/2 ML VIAL IVP ONE; PROPOFOL 10 MG/ML 20 ML VIAL IV ONE; Pre Op ABX Message 1 EACH MISC MISCELLANE ONE; SCOPOLAMINE 1.5MG/72HR PATCH TRANSDERM ONE
[2021-08-15 07:59] VITALS: TEMP 97.6
--- NOTE | 2021-08-15 10:04 | P.OP ---
Date of Procedure: 08/15/21 Procedure(s) Performed: PREOPERATIVE DIAGNOSIS: Left back melanoma POSTOPERATIVE DIAGNOSIS: Same PROCEDURE: Wide local excision left back melanoma with intermediate closure SURGEON: Carlos EBL: 10 mL ANESTHESIA: Gen. COMPLICATIONS: None OPERATIVE PROCEDURE: Patient placed in the operative table in the right decubitus position. The patient's left lower back prepped and draped sterilely. A 3.5 cm x 6 cm elliptical incision was made oriented horizontally over the recent biopsy site. This was performed after localization with Marcaine. Specimen was sent to pathology for close examination. Flaps are raised inferiorly and superiorly in the subcutaneous layer. The subcutaneous tissues were then closed in layers using 20 and 3-0 Vicryl sutures. Skin was closed using both interrupted and running 4-0 nylon sutures. Sterile dressings were then applied. DISPOSITION: Stable to recovery room
[2021-08-15 11:25] VITALS: BP 130/87; PULSE 68; RESP 16
== END ==
LOC: OR 07:29
PROVIDERS: ATTEND Surgery
DX: C43.72 Malignant melanoma of left lower limb, including hip (principal); Z88.0 Allergy status to penicillin
CPT/HCPCS: 88305; 11426; J2250; J1100; J0690; J2405; J3010; J1885; J2704; J1170; J1644

== ENCOUNTER 2021-11-16 23:30 | Emergency (ER) | payer BC ==
[2021-11-16 23:34] VITALS: RESP 18
[2021-11-16] MEDS ORDERED: ONDANSETRON 4 MG/2 ML VIAL IVP STA (23:59)
[2021-11-16] MEDS ORDERED: SODIUM CHLORIDE 0.9% 1,000 ML IV STA ×2 (23:59)
[2021-11-16] MEDS ORDERED: ACETAMINOPHEN TAB 500 MG TAB PO STA (23:59)
[2021-11-17] MEDS ORDERED: KETOROLAC 15 MG/ML 1 ML VIAL IVP STA
[2021-11-17] MEDS ORDERED: IBUPROFEN 600 MG TAB PO STA
--- NOTE | 2021-11-17 00:01 | ED ---
Chest Pain HPI - General Chief Complaint: Chest Pain Stated Complaint: Palpitations Time Seen by Provider: 11/16/21 23:45 Source: patient Mode of arrival: wheelchair Limitations: no limitations - History of Present Illness Initial Comments: This is a 7-year-old female presenting with for evaluation of chest pain. Patient has had some chest pain throughout the day mildly progressively worse. Patient presents DF surprised that she has a fever but denies any sick contacts or travel history. No nausea vomiting diarrhea. No current shortness of breath is complaining of chest pain patient states she is overall does not feeling well. Bleeding started after taking naproxen tonight that was prescribed for by her bandoleer packer Complaint: chest pain -: days(s) Onset: during rest Pain Location: substernal Pain Radiation: none Severity: moderate Severity scale (1-10): 4 Quality: tightness Consistency: constant Improves With: nothing Context: recent illness Anginal Symptoms: dyspnea, sense of impending doom Treatments Prior to Arrival: none - Related Data Home Medications Medication Instructions Recorded Confirmed Cholecalciferol [Vitamin D3 (25 25 mcg PO DAILY 08/14/21 08/15/21 Mcg = 1000 Iu)] Multivit-Min/Iron/Folic/Lutein 1 each PO DAILY 08/14/21 08/15/21 [Centrum Silver Women Tablet] [place]-3 Fatty Acids/Fish Oil [Fish 1 each PO DAILY 08/14/21 08/15/21 Oil 1,000 mg Softgel] Previous Rx's Medication Instructions Recorded HYDROcodone/APAP 5-325MG [[place] 1 tab PO Q6HR PRN 3 Days #6 tab 08/15/21 5-325] Allergies Allergy/AdvReac Type Severity Reaction Status Date / Time Penicillins Allergy Mild Rash/Hives Verified 11/16/21 23:34 Review of Systems ROS Statement: Those systems with pertinent positive or pertinent negative responses have been documented in the HPI. ROS Other: All systems not noted in ROS Statement are negative. EKG Findings - EKG Comments: EKG Findings:: EKG is sinus tachycardia 122 ME 134 QRS 82 QTC 414 Past Medical History Past Medical History: No Reported History Additional Past Medical History / Comment(s): back/neck pain. 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 She had a CARLOS and later RSO for benign reasons. History of Any Multi-Drug Resistant Organisms: None Reported Past Surgical History: Breast Surgery, Hysterectomy Additional Past Surgical History / Comment(s): CARLOS 1996. RSO 1997. Bilateral breast implants placed in 2007 and these were removed in 2018. Abdominoplasty 2007. Colonoscopy 2016(2nd-next 5yrs). Past Psychological History: No Psychological Hx Reported Smoking Status: Never smoker - Past Family History Mother Family Medical History: Cancer Additional Family Medical History / Comment(s): Colon cancer. Uncles and grandmother had diabetes. Sister(s) Additional Family Medical History / Comment(s): Precancerous colon polyps. General Exam Limitations: no limitations General appearance: alert, in no apparent distress, anxious Head exam: Present: atraumatic, normocephalic, normal inspection Eye exam: Present: normal appearance, PERRL, EOMI. Absent: scleral icterus, conjunctival injection, periorbital swelling ENT exam: Present: normal exam, mucous membranes dry Neck exam: Present: normal inspection. Absent: tenderness, meningismus, lymphadenopathy Respiratory exam: Present: normal lung sounds bilaterally. Absent: respiratory distress, wheezes, rales, rhonchi, stridor Cardiovascular Exam: Present: normal rhythm, tachycardia, normal heart sounds. Absent: systolic murmur, diastolic murmur, rubs, gallop, clicks GI/Abdominal exam: Present: soft, normal bowel sounds. Absent: distended, tenderness, guarding, rebound, rigid Extremities exam: Present: normal inspection, full ROM, normal capillary refill. Absent: tenderness, pedal edema, joint swelling, calf tenderness Back exam: Present: normal inspection Neurological exam: Present: alert, oriented X3, CN II-XII intact Psychiatric exam: Present: normal affect, normal mood Skin exam: Present: warm, dry, intact, normal color. Absent: rash Course Vital Signs 11/16/21 11/17/21 11/17/21 23:31 01:12 02:00 Temperature 100.6 F H Pulse Rate 134 H 90 Respiratory 18 18 18 Rate Blood Pressure 163/82 134/69 O2 Sat by Pulse 100 95 Oximetry 11/17/21 02:39 Temperature 98.6 F Pulse Rate 90 Respiratory 18 Rate Blood Pressure 130/84 O2 Sat by Pulse 96 Oximetry - Reevaluation(s) Reevaluation #1: 11/17/21 Medical record is reviewed Patient symptoms are improved here in the emergency department Patient informed of results and questions answered Chest Pain MDM - MDM 61 female to the emergency department for evaluation regarding chest pain. Patient is concerned that significant amount of chest pain. Chest pain resolved here in the ER. Patient is positive for coronavirus. Patient can be discharged home, chest x-rays negative for acute disease Disposition Clinical Impression: Coronavirus infection Disposition: HOME SELF-CARE Condition: Good Instructions (If sedation given, give patient instructions): Coronavirus Disease 2019 (COVID-19) Is patient prescribed a controlled substance at d/c from ED?: No Referrals: Inderjit Rosado MD [Primary Care Provider] - 1-2 days
[2021-11-17 00:12] LABS: Basophils % (A) 0 %; Eosinophils # (A) 0.1 k/uL (0-0.7); Eosinophils % (A) 1 %; HCT 43.8 % (34.0-46.0); HGB 15.6 gm/dL (11.4-16.0); Lymphocytes # (A) 0.5 k/uL (1.0-4.8); Lymphocytes % (A) 6 %; MCH 30.9 pg (25.0-35.0); MCHC 35.6 g/dL (31.0-37.0); MCV 86.8 fL (80.0-100.0); Mean Platelet Volume 6.9; Monocytes # (A) 0.1 k/uL (0-1.0); Monocytes % (A) 1 %; Neutrophils # (A) 7.6 k/uL (1.3-7.7); Neutrophils % (A) 91 %; Platelet Count 180 k/uL (150-450); RBC 5.05 m/uL (3.80-5.40); RDW 12.5 % (11.5-15.5); WBC 8.4 k/uL (3.8-10.6)
[2021-11-17 00:25] LABS: INR 0.9 (<1.2); Partial Thromboplastin Time 22.9 sec (22.0-30.0); Prothrombin Time 10.1 sec (9.0-12.0)
[2021-11-17 00:29] LABS: ALT 93 U/L (4-34); AST 169 U/L (14-36); African American GFR (CKD) >90 (>60 ml/min/1.73 sqM); Albumin 4.5 g/dL (3.5-5.0); Alkaline Phosphatase 89 U/L (38-126); Anion Gap 10 mmol/L; Blood Urea Nitrogen 21 mg/dL (7-17); Calcium 9.5 mg/dL (8.4-10.2); Carbon Dioxide 28 mmol/L (22-30); Chloride 102 mmol/L (98-107); Glucose 120 mg/dL (74-99); LDH 860 U/L (313-618); Lipase 229 U/L (23-300); Magnesium 1.9 mg/dL (1.6-2.3); Non-African American GFR(CKD) >90 (>60 ml/min/1.73 sqM); Phosphorus 3.8 mg/dL (2.5-4.5); Potassium 3.5 mmol/L (3.5-5.1); Sodium 140 mmol/L (137-145); Total Bilirubin 0.7 mg/dL (0.2-1.3); Total Protein 7.3 g/dL (6.3-8.2)
[2021-11-17 00:45] LABS: C Reactive Protein <0.5 mg/dL (<1.0)
--- NOTE | 2021-11-17 01:03 | XR ---
EXAMINATION TYPE: XR chest 1V portable DATE OF EXAM: 11/17/2021 COMPARISON: 09/24/2018 HISTORY: Chest pain TECHNIQUE: FINDINGS: Heart and mediastinum are normal. Lungs are clear. Diaphragm is normal. Bony thorax is inta ct. IMPRESSION: Normal chest. No change.
[2021-11-17 01:12] VITALS: PULSE 90
[2021-11-17] MEDS ORDERED: DEXAMETHASONE SOD PHOSPHATE 10 MG/ML 1 ML VIAL IVP STA (02:20)
[2021-11-17 03:13] VITALS: BP 130/84; TEMP 98.6
== END 2021-11-17 03:12 | disposition home or self-care (01) ==
LOC: EC 23:30
DX: U07.1 COVID-19 (principal)
CPT/HCPCS: 93005; 85379; 83880; 80053; 83605; 83615; 83690; 83735; 84100; 84484; 85025; 85610; 85730; 86140; 87635; 71045; 99285; 96374; 96375 ×2; 96361 ×2; J1100; J2405; J1885

== ENCOUNTER → 2021-12-31 | Outpatient (CLI) | payer BC ==
[2021-12-31 10:45] VITALS: BP 128/64; PULSE 67; RESP 16; TEMP 98.3
--- NOTE | 2021-12-31 11:41 | P.HPOB ---
History of Present Illness H&P Date: 12/31/21 Chief Complaint: The patient is here for her routine gynecologic exam and ma mmogram. This is a 61-year-old 013 with an LMP of 1996. She is status post CARLOS and later RSO for benign reasons. The patient is without gynecologic complaints. Review of Systems The patient's weight has been stable over the last year. She denies respiratory, cardiac, or G.I. problems. Past Medical History Past Medical History: No Reported History, Cancer Additional Past Medical History / Comment(s): Melanoma stage 0 at left lower [id number]. back/neck pain. 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 She had a CARLOS and later RSO for benign reasons. History of Any Multi-Drug Resistant Organisms: None Reported Past Surgical History: Breast Surgery, Hysterectomy Additional Past Surgical History / Comment(s): CARLOS 1996. RSO 1997. Bilateral breast implants placed in 2007 and these were removed in 2017. Abdominoplasty 2007. Melanoma removed from left lower back 2020. Colonoscopy 2016(2nd-next 5yrs). 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 - Past Family History Mother Family Medical History: Cancer Additional Family Medical History / Comment(s): Colon cancer. Uncles and grandmother had diabetes. Sister(s) Additional Family Medical History / Comment(s): Precancerous colon polyps. Medications and Allergies Home Medications Medication Instructions Recorded Confirmed Type Cholecalciferol [Vitamin D3 (25 25 mcg PO DAILY 08/14/21 12/31/21 History Mcg = 1000 Iu)] Multivit-Min/Iron/Folic/Lutein 1 each PO DAILY 08/14/21 12/31/21 History [Centrum Silver Women Tablet] [place]-3 Fatty Acids/Fish Oil [Fish 1 each PO DAILY 08/14/21 12/31/21 History Oil 1,000 mg Softgel] Allergies Allergy/AdvReac Type Severity Reaction Status Date / Time Penicillins Allergy Mild Rash/Hives Verified 12/31/21 10:41 Exam Vital Signs Temp Pulse Resp BP Pulse Ox 12/31/21 10:42 98.3 F 67 16 128/64 98 Intake and Output 12/30/21 12/31/21 12/31/21 22:59 06:59 14:59 Other: Weight 63.503 kg Height 5 feet 3 inches, weight 140 pounds, BMI 24.8. This is a well-developed well-nourished white female who is alert and oriented times 3 in no acute distress. HEENT: Within normal limits. NECK: Supple without mass or thyromegaly. CHEST AND LUNGS: Clear to auscultation. HEART: Regular rate and rhythm. BREASTS: Are without mass or discharge. AXILLARY EXAM: Negative for adenopathy. BACK: Negative for CVA tenderness. ABDOMEN: Soft, nontender, without palpable masses. PELVIC EXAM: External genitalia appears normal with mild atrophy. Vagina appears normal with mild atrophy. There is no evidence of prolapse. Bimanual examination is negative for mass or tenderness. RECTAL EXAM: Rectovaginal exam is negative for mass or tenderness and is negative for occult blood. EXTREMITIES: Nontender. IMPRESSION: 1. 61-year-old menopausal female status post CARLOS and later RSO for benign reasons, with normal gynecologic exam. 2. History of osteoporosis declining prescription medications for this. PLAN: 1. Pap smears have been discontinued. 2. Self breast awareness was discussed with the patient. We have also discussed symptoms associated with inflammatory breast cancer. 3. Screening mammogram will be done today. 4. Osteoporosis management was discussed. I have stressed the importance of adequate calcium, vitamin D and regular exercise. Recommended amounts of calcium and vitamin D were also discussed. She again is declining prescription medication for osteoporosis. She understands medications can help strengthen bones to decrease the risk of bone fractures. She will call if she changes her mind. 5. She has completed her Covid vaccination series and did have Covid in the past. 6. She is scheduled for her colonoscopy on 01/13/[address] Gonzalez. 7. She was advised to return in one year for her annual well woman exam.
--- NOTE | 2022-01-01 12:18 | MM ---
Reason for exam: screening (asymptomatic). Last mammogram was performed 1 year and 6 months ago. History: Patient is postmenopausal. Implant Removal of both breasts, April 01, 2018. Retro-pectoral silicone gel implants in both breasts, December 2007. Physical Findings: A clinical breast exam by your physician is recommended on an annual basis and results should be correlated with mammographic findings. MG 3D Screening Mammo W/Cad Bilateral CC, MLO, and XCCL view(s) were taken. Prior study comparison: June 25, 2020, bilateral MG 3d screening mammo w/cad. October 05, 2018, bilateral MG 3d screening mammo w/cad. The breast tissue is heterogeneously dense. This may lower the sensitivity of mammography. There are indeterminate calcifications in the left breast medial on CC view 5-6cm from nipple. Asymmetric breast tissue upper outer quadrant left breast on MLO view 4-5cm from nipple. ASSESSMENT: Incomplete: need additional imaging evaluation, BI-RAD 0 RECOMMENDATION: Special view mammogram and ultrasound of the left breast. [facility] will attempt to contact patient to return for supplemental views and ultrasound.
== END ==
LOC: WWCWWP 10:30
PROVIDERS: ATTEND Obstetrics & Gynecology
DX: Z12.31 Encounter for screening mammogram for malignant neoplasm of breast (principal); Z87.39 Personal history of other diseases of the musculoskeletal system and connective tissue; Z90.710 Acquired absence of both cervix and uterus; Z88.0 Allergy status to penicillin
CPT/HCPCS: 77063; 77067

== ENCOUNTER → 2022-01-07 | Outpatient (CLI) | payer BC ==
--- NOTE | 2022-01-07 10:47 | MM ---
Reason for exam: additional evaluation requested from abnormal screening. Last mammogram was performed less than 1 month ago. History: Patient is postmenopausal. Implant Removal of both breasts, April 01, 2018. Implant Removal of both breasts, 2017. Retro-pectoral silicone gel implants in both breasts, December 2007. Physical Findings: A clinical breast exam by your physician is recommended on an annual basis and results should be correlated with mammographic findings. MG 3D Work Up W/Cad LT CC with magnification and LM view(s) were taken of the left breast. Prior study comparison: December 31, 2021, bilateral MG 3d screening mammo w/cad. June 25, 2020, bilateral MG 3d screening mammo w/cad. The breast tissue is heterogeneously dense. This may lower the sensitivity of mammography. No suspicious new group of calcifications in the left breast. Results were given to the patient verbally at the time of the exam. ASSESSMENT: Negative, BI-RAD 1 RECOMMENDATION: Return to routine screening mammogram schedule for both breasts.
--- NOTE | 2022-01-07 10:48 | USB ---
Reason for exam: additional evaluation requested from abnormal screening. History: Patient is postmenopausal. Implant Removal of both breasts, April 01, 2018. Implant Removal of both breasts, 2018. Retro-pectoral silicone gel implants in both breasts, December 2007. Physical Findings: A clinical breast exam by your physician is recommended on an annual basis and results should be correlated with mammographic findings. US Breast Workup Limited LT Left limited breast ultrasound including focal area of concern, retroareolar and axilla demonstrates no cystic or solid lesion seen. Results were given to the patient verbally at the time of the exam. ASSESSMENT: Negative, BI-RAD 1 RECOMMENDATION: Return to routine screening mammogram schedule for both breasts.
== END | disposition home or self-care (01) ==
LOC: RADMAMWWP 08:56
PROVIDERS: ATTEND Obstetrics & Gynecology
DX: R92.8 Other abnormal and inconclusive findings on diagnostic imaging of breast (principal); Z78.0 Asymptomatic menopausal state
CPT/HCPCS: 77061; 77065

== ENCOUNTER 2022-01-13 07:21 | Day surgery (SDC) | payer BC ==
[2022-01-08 16:04] VITALS: BMI 21.2
[~2022-01-13 07:21] MED LIST changes: -.fentaNYL (PF) 50 MCG/ML 2 ML AMP ONE; -ACETAMINOPHEN TAB 500 MG TAB ONE; -ACETAMINOPHEN TAB 500 MG TAB PO PRN; -BUPIVACAINE (PF) 0.25% 30 ML VIAL SQ ONE; -DEXAMETHASONE SOD PHOSPHATE 4 MG/ML 1 ML VIAL IV ONE; -HEPARIN SODIUM,PORCINE/PF 5,000 UNIT/0.5 ML SYRINGE SQ PRN; -HYDROcodone/APAP 5-325MG 1 EACH TAB PO PRN; -HYDROmorphone 0.5 MG/0.5 ML SYRINGE IVP PRN; -KETAMINE 10 MG/ML 20 ML VIAL ONE; -KETOROLAC 30 MG/ML 1 ML VIAL ONE; +LIDOCAINE 1% (10MG/ML) FOR IV START INTRADERMA PRN; -MIDAZOLAM 2 MG/2 ML VIAL IV PRN; -MIDAZOLAM 2 MG/2 ML VIAL ONE; -NALOXONE 0.4 MG/ML 1 ML VIAL IV PRN; -ONDANSETRON 4 MG/2 ML VIAL IVP ONE; +ONDANSETRON 4 MG/2 ML VIAL IVP PRN; -PROPOFOL 10 MG/ML 20 ML VIAL IV ONE; -Pre Op ABX Message 1 EACH MISC MISCELLANE ONE; -SCOPOLAMINE 1.5MG/72HR PATCH TRANSDERM ONE
[2022-01-13 07:40] VITALS: TEMP 97
[2022-01-13] MEDS ORDERED: LIDOCAINE 2% INJ 20 MG/ML (2 ML VIAL) ONE (08:05)
[2022-01-13] MEDS ORDERED: PROPOFOL 10 MG/ML 20 ML VIAL IV ONE (08:05)
--- NOTE | 2022-01-13 08:09 | P.GSHP ---
History of Present Illness H&P Date: 01/13/22 Chief Complaint: Colon cancer screening 61-year-old female here today for colonoscopy. Last colonoscopy 5-6 years ago. Patient's mother with history of colon cancer. No bowel complaints. Past Medical History Past Medical History: No Reported History, Hearing Disorder / Deafness Additional Past Medical History / Comment(s): DEAF RT EAR History of Any Multi-Drug Resistant Organisms: None Reported Past Surgical History: Breast Surgery, Hysterectomy Additional Past Surgical History / Comment(s): CARLOS 1996. RSO 1997. Bilateral breast implants placed in 2007 and these were removed in 2018. Abdominoplasty 2007. Colonoscopy 2016(2nd-next 5yrs). Past Anesthesia/Blood Transfusion Reactions: Postoperative Nausea & Vomiting (PONV) Smoking Status: Former smoker - Past Family History Mother Family Medical History: Cancer Additional Family Medical History / Comment(s): Colon cancer. Uncles and grandmother had diabetes. Sister(s) Additional Family Medical History / Comment(s): Precancerous colon polyps. Medications and Allergies Home Medications Medication Instructions Recorded Confirmed Type Cholecalciferol [Vitamin D3 (25 25 mcg PO DAILY 08/14/21 01/13/22 History Mcg = 1000 Iu)] Multivit-Min/Iron/Folic/Lutein 1 each PO DAILY 08/14/21 01/13/22 History [Centrum Silver Women Tablet] [place]-3 Fatty Acids/Fish Oil [Fish 1 each PO DAILY 08/14/21 01/13/22 History Oil 1,000 mg Softgel] Allergies Allergy/AdvReac Type Severity Reaction Status Date / Time Penicillins Allergy Mild Rash/Hives Verified 01/13/22 07:35 Surgical - Exam Vital Signs Temp Pulse Resp BP Pulse Ox 97.0 F L 67 16 156/77 99 01/13/22 07:38 01/13/22 07:38 01/13/22 07:38 01/13/22 07:38 01/13/22 07:38 Physical exam: General: Well-developed, well-nourished HEENT: Normocephalic, sclerae nonicteric Abdomen: Nontender, nondistended Extremities: No edema Neuro: Alert and oriented Assessment and Plan (1) Colon cancer screening Narrative/Plan: Will proceed with colonoscopy at this time Current Visit: Yes Status: Acute Code(s): Z12.11 - ENCOUNTER FOR SCREENING FOR MALIGNANT NEOPLASM OF COLON SNOMED Code(s): 693010272
--- NOTE | 2022-01-13 08:22 | P.PCN ---
Date of Procedure: 01/13/22 Procedure(s) Performed: PREOPERATIVE DIAGNOSIS: Colon cancer screening, family history of colon cancer POSTOPERATIVE DIAGNOSIS: Normal exam PROCEDURE: Colonoscopy ANESTHESIA: MAC SURGEON: Toni Gonzalez M.D. SPECIMENS: None ENDOSCOPIC PROCEDURE: The patient was placed on the endoscopy table in the left decubitus position. The Olympus colonoscope was inserted into the anus and passed under direct visualization to the base of the cecum. The appendiceal orifice was visualized. From that point the scope was slowly withdrawn inspecting all surfaces carefully. There were no neoplastic inflammatory or polypoid lesions throughout the cecum, ascending, transverse, descending, sigmoid and rectum. There was no visible diverticulosis noted. Digital rectal examination was normal. The patient was taken to the recovery room in stable condition per anesthesia guidelines. RECOMMENDATIONS: Resume diet. Follow-up colonoscopy 5 years.
[2022-01-13 08:40] VITALS: BP 135/75; PULSE 56; RESP 17
== END 2022-01-13 09:11 | disposition home or self-care (01) ==
LOC: ORWHC2ENDO 07:21
PROVIDERS: ATTEND Surgery
DX: Z12.11 Encounter for screening for malignant neoplasm of colon (principal); Z80.0 Family history of malignant neoplasm of digestive organs; Z83.3 Family history of diabetes mellitus; Z87.891 Personal history of nicotine dependence; Z88.0 Allergy status to penicillin; Z90.721 Acquired absence of ovaries, unilateral
CPT/HCPCS: 45378; J2405; J2704; J2001

== ENCOUNTER → 2022-01-22 | Outpatient (CLI) | payer BC ==
[2022-01-22 10:38] LABS: WBC 4.81 X 10*3/uL (4.50-10.00)
[2022-01-22 10:39] LABS: Basophils # (A) 0.04 X 10*3/uL (0.00-0.10); Basophils % (A) 0.8 %; Eosinophils # (A) 0.12 X 10*3/uL (0.04-0.35); Eosinophils % (A) 2.5 %; HCT 42.1 % (37.2-46.3); HGB 14.2 g/dL (12.0-15.0); Immature Grans, Automated 0.4 %; Lymphocytes # (A) 1.83 X 10*3/uL (0.90-5.00); MCH 29.2 pg (27.0-32.0); MCHC 33.7 g/dL (32.0-37.0); MCV 86.4 fL (80.0-97.0); Mean Platelet Volume 10.1 fL (9.5-12.2); Monocytes # (A) 0.49 X 10*3/uL (0.20-1.00); Monocytes % (A) 10.2 %; NRBC Per 100 WBC 0 /100 WBCS (0.0-0.0); Neutrophils # (A) 2.31 X 10*3/uL (1.80-7.70); Neutrophils % (A) 48.1 %; Platelet Count 217 X 10*3/uL (140-440); RBC 4.87 X 10*6/uL (4.10-5.20); RDW 12.5 % (11.5-14.5)
[2022-01-22 11:02] LABS: ALT 38 U/L (8-44); AST 25 U/L (13-35); African American GFR (CKD) 109.1 (60.0-200.0); Albumin 4.5 g/dL (3.8-4.9); Albumin/Globulin Ratio 1.96 (1.60-3.17); Alkaline Phosphatase 83 U/L (41-126); BUN/Creat Ratio 21.71 Ratio (12.00-20.00); Blood Urea Nitrogen 15.2 mg/dL (9.0-27.0); Calcium 9.6 mg/dL (8.7-10.3); Carbon Dioxide 28.6 mmol/L (20.0-27.5); Chloride 104 mmol/L (96-109); Chol/HDL Ratio 4.37 Ratio; Globulin 2.3 g/dL (1.6-3.3); Glucose 97 mg/dL (70-110); LDL Cholesterol,Calculated 82.4 mg/dL (0.0-131.0); Non-African American GFR(CKD) 94.2 (60.0-200.0); Potassium 4.4 mmol/L (3.5-5.5); Sodium 142 mmol/L (135-145); Total Protein 6.8 g/dL (6.2-8.2)
== END | disposition home or self-care (01) ==
LOC: LABWHC1 07:30
PROVIDERS: ATTEND Family Medicine
DX: Z00.00 Encounter for general adult medical examination without abnormal findings (principal); M85.80 Other specified disorders of bone density and structure, unspecified site
CPT/HCPCS: 36415; 80053; 80061; 82306; 84443; 85025

== ENCOUNTER → 2023-01-12 | Outpatient (CLI) | payer BC ==
[2023-01-12 14:50] VITALS: BP 135/79; PULSE 69; RESP 16; TEMP 98.9
--- NOTE | 2023-01-12 15:25 | P.HPOB ---
History of Present Illness H&P Date: 01/12/23 Chief Complaint: The patient is here for her routine gynecologic exam and ma mmogram. This is a 62-year-old 013 with an LMP of 1996. She is status post CARLOS and liver RSO for benign reasons. She is without gynecologic complaints. Review of Systems The patient's weight has been stable over the last year. She denies respiratory, cardiac, or G.I. problems. Past Medical History Past Medical History: Cancer Additional Past Medical History / Comment(s): Melanoma stage 0 at left lower [id number]. back/neck pain. Osteoporosis. 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 History of Any Multi-Drug Resistant Organisms: None Reported Past Surgical History: Breast Surgery, Hysterectomy Additional Past Surgical History / Comment(s): CARLOS 1996. RSO 1997. Bilateral breast implants placed in 2007 and these were removed in 2017. Abdominoplasty 2007. Melanoma removed from left lower back 2020. Colonoscopy 2021(next 5yrs). 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 - Past Family History Mother Family Medical History: Cancer Additional Family Medical History / Comment(s): Colon cancer. Uncles and grandmother had diabetes. Sister(s) Additional Family Medical History / Comment(s): Precancerous colon polyps. Medications and Allergies Home Medications Medication Instructions Recorded Confirmed Type Cholecalciferol [Vitamin D3 (25 25 mcg PO DAILY 08/14/21 01/12/23 History Mcg = 1000 Iu)] Multivit-Min/Iron/Folic/Lutein 1 each PO DAILY 08/14/21 01/12/23 History [Centrum Silver Women Tablet] Allergies Allergy/AdvReac Type Severity Reaction Status Date / Time Penicillins Allergy Mild Rash/Hives Verified 01/12/23 14:46 Exam Vital Signs Temp Pulse Resp BP Pulse Ox 01/12/23 14:47 98.9 F 69 16 135/79 97 Intake and Output 01/12/23 01/12/23 01/12/23 06:59 14:59 22:59 Other: Weight 63.503 kg Height 5 feet 3 inches, weight 140 pounds, BMI 24.8. This is a well-developed well-nourished white female who is alert and oriented times 3 in no acute distress. HEENT: Within normal limits. NECK: Supple without mass or thyromegaly. CHEST AND LUNGS: Clear to auscultation. HEART: Regular rate and rhythm. BREASTS: Are without mass or discharge. AXILLARY EXAM: Negative for adenopathy. BACK: Negative for CVA tenderness. ABDOMEN: Soft, nontender, without palpable masses. PELVIC EXAM: External genitalia appears normal with mild atrophy. Vagina appea rs normal with mild atrophy. There is no evidence of prolapse. Bimanual examination is negative for mass or tenderness. RECTAL EXAM: Rectovaginal exam is negative for mass or tenderness and is negativ e for occult blood. EXTREMITIES: Nontender. IMPRESSION: 1. 62-year-old menopausal female status post CARLOS and later RSO for benign reasons, with normal gynecologic exam. 2. History of osteoporosis, declining prescription medication for this. PLAN: 1. Pap smears have been discontinued. 2. Self breast awareness was discussed with the patient. We have also discussed symptoms associated with inflammatory breast cancer. 3. Screening mammogram will be done today. 4. Osteoporosis management was discussed. I have stressed the importance of adequate calcium, vitamin D and regular exercise. Recommended amounts of calcium and vitamin D were also discussed. We have again discussed various types of prescription medications that can be used to help to strengthen bones and to decrease the risk for certain types of bone fractures. She again is declining medication for this. We have discussed how bone density testing can be repeated, but may not make sense to be doing this type of testing if she is declining all medication for this. She will be no she changes her mind about treatment or testing. 5. She was advised to return in one year for her annual well woman exam.
--- NOTE | 2023-01-13 21:14 | MM ---
Reason for Exam: Screening (asymptomatic). Last mammogram was performed 1 year(s) and 1 month(s) ago. Patient History: Menarche at age 15. First Full-Term at age 21. Right ovary removed at age 37. Hysterectomy at age 36. Postmenopausal. 2018, Bilateral Implant Removal. 04/01/2018, Bilateral Implant Removal. 12/2007, Bilateral Implants. Risk Values: Odilia 5 year model risk: 1.2%. NCI Lifetime model risk: 5.8%. Prior Study Comparison: 06/25/2020 Bilateral Screening Mammogram, [facility]. 12/31/2021 Bilateral Screening Mammogram, [facility]. 01/07/2022 Left Diagnostic Mammogram, [facility]. Tissue Density: The breast tissue is extremely dense which could obscure a lesion on mammography. Findings: Analyzed By CAD. Unchanged central asymmetric density right cc view. There is no suspicious group of microcalcifications or new suspicious mass in either breast. Overall Assessment: Benign, BI-RAD 2 Management: Screening Mammogram of both breasts in 1 year. . Patient should continue monthly self-breast exams. A clinical breast exam by your physician is recommended on an annual basis. This exam should not preclude additional follow-up of suspicious palpable abnormalities. Note on Odilia scores and lifetime risk: 1. A Odilia score greater than 3% is considered moderate risk. If this is the case, consider specialist referral to assess eligibility for a risk reducing agent. 2. If overall lifetime risk for the development of breast cancer is 20% or higher, the patient may qualify for future screening with alternating mammogram and breast MRI. Electronically signed and approved by: Gunjan Greer M.D. Radiologist
== END ==
LOC: WWCWWP 14:35
PROVIDERS: ATTEND Obstetrics & Gynecology
DX: Z12.31 Encounter for screening mammogram for malignant neoplasm of breast (principal); Z01.419 Encounter for gynecological examination (general) (routine) without abnormal findings; M81.0 Age-related osteoporosis without current pathological fracture; Z80.0 Family history of malignant neoplasm of digestive organs; Z83.3 Family history of diabetes mellitus; Z83.71 Family history of colonic polyps; Z85.820 Personal history of malignant melanoma of skin; Z88.0 Allergy status to penicillin; Z90.710 Acquired absence of both cervix and uterus; Z90.721 Acquired absence of ovaries, unilateral; Z78.0 Asymptomatic menopausal state
CPT/HCPCS: 77063; 77067

== ENCOUNTER → 2023-01-25 | Outpatient (CLI) | payer BC ==
[2023-01-25 11:10] LABS: Basophils # (A) 0.06 X 10*3/uL (0.00-0.10); Basophils % (A) 1.1 %; Eosinophils # (A) 0.15 X 10*3/uL (0.04-0.35); Eosinophils % (A) 2.8 %; HCT 44.7 % (37.2-46.3); HGB 15.1 g/dL (12.0-15.0); Immature Grans, Automated 0.2 %; Lymphocytes # (A) 1.85 X 10*3/uL (0.90-5.00); Lymphocytes % (A) 34.8 %; MCHC 33.8 g/dL (32.0-37.0); MCV 85.8 fL (80.0-97.0); Mean Platelet Volume 9.5 fL (9.5-12.2); Monocytes # (A) 0.47 X 10*3/uL (0.20-1.00); Monocytes % (A) 8.8 %; NRBC Per 100 WBC 0 /100 WBCS (0.0-0.0); Neutrophils # (A) 2.78 X 10*3/uL (1.80-7.70); Neutrophils % (A) 52.3 %; Platelet Count 214 X 10*3/uL (140-440); RBC 5.21 X 10*6/uL (4.10-5.20); RDW 12.2 % (11.5-14.5); WBC 5.32 X 10*3/uL (4.50-10.00)
[2023-01-25 11:27] LABS: ALT 32 U/L (8-44); AST 21 U/L (13-35); Albumin 4.7 g/dL (3.8-4.9); Albumin/Globulin Ratio 2.14 (1.60-3.17); Alkaline Phosphatase 83 U/L (41-126); Blood Urea Nitrogen 14.4 mg/dL (9.0-27.0); Calcium 9.6 mg/dL (8.7-10.3); Chloride 104 mmol/L (96-109); Chol/HDL Ratio 4.87 Ratio; Globulin 2.2 g/dL (1.6-3.3); Glucose 98 mg/dL (70-110); LDL Cholesterol,Calculated 75.3 mg/dL (0.0-131.0); Non-African American GFR(CKD) 98.4 (60.0-200.0); Potassium 4.4 mmol/L (3.5-5.5); Sodium 141 mmol/L (135-145); Total Protein 6.9 g/dL (6.2-8.2)
== END | disposition home or self-care (01) ==
LOC: LABWHC1 06:58
PROVIDERS: ATTEND Family Medicine
DX: Z00.00 Encounter for general adult medical examination without abnormal findings (principal); E78.1 Pure hyperglyceridemia; E55.9 Vitamin D deficiency, unspecified
CPT/HCPCS: 36415; 80053; 80061; 82306; 84443; 85025

== ENCOUNTER → 2024-02-15 | Outpatient (CLI) | payer BC ==
[2024-02-15 10:42] VITALS: BP 147/76; PULSE 66; RESP 16; TEMP 98
--- NOTE | 2024-02-15 11:55 | MM ---
Reason for Exam: Screening (asymptomatic). Last mammogram was performed 1 year(s) and 1 month(s) ago. Patient History: Menarche at age 15. First Full-Term at age 21. Right ovary removed at age 37. Hysterectomy at age 36. Postmenopausal. 2018, Bilateral Implant Removal. 04/01/2018, Bilateral Implant Removal. 12/2007, Bilateral Implants. Risk Values: Odilia 5 year model risk: 1.2%. NCI Lifetime model risk: 5.7%. Prior Study Comparison: 12/31/2021 Bilateral Screening Mammogram, [facility]. 01/07/2022 Left Diagnostic Mammogram, [facility]. 01/12/2023 Bilateral MG 3D screening mammo w/cad, [facility]. Tissue Density: The breasts are heterogeneously dense, which may obscure small masses. Findings: Analyzed By CAD. Right breast: There is no suspicious group of microcalcifications or new suspicious mass. Left breast: There is no suspicious group of microcalcifications or new suspicious mass. Overall Assessment: Negative, BI-RAD 1 Management: Screening Mammogram of both breasts in [address] [facility] will attempt to contact patient to return for supplemental views and ultrasound if indicated. Patient should continue monthly self-breast exams. A clinical breast exam by your physician is recommended on an annual basis. This exam should not preclude additional follow-up of suspicious palpable abnormalities. Note on Odilia scores and lifetime risk: 1. A Odilia score greater than 3% is considered moderate risk. If this is the case, consider specialist referral to assess eligibility for a risk reducing agent. 2. If overall lifetime risk for the development of breast cancer is 20% or higher, the patient may qualify for future screening with alternating mammogram and breast MRI. Electronically signed and approved by: Wilton Hill DO
--- NOTE | 2024-02-15 12:33 | P.HPOB ---
History of Present Illness H&P Date: 02/15/24 Chief Complaint: The patient is here for her routine gynecologic exam and ma mmogram. This is a 63-year-old -0-1-3 with an LMP of 1996. She is status post CARLOS and later RSO for benign reasons. She is without gynecologic complaints. She does have a history of osteoporosis and she is contemplating starting medications for this. In the past she was declining medications. She states she does believe she took something for weaker bones in 2008 very briefly, but is not sure of the exact medication. She knows it caused heartburn and soon after starting it it was discontinued. She also tried some type of nasal spray for weak bones but this also caused heartburn and it was also discontinued soon after starting it. Review of Systems The patient's weight has been stable over the last year. She denies respiratory, cardiac, or G.I. problems. Past Medical History Past Medical History: Cancer Additional Past Medical History / Comment(s): Melanoma stage 0 at left lower ba [id number]. back/neck pain. Osteoporosis. 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 History of Any Multi-Drug Resistant Organisms: None Reported Past Surgical History: Breast Surgery, Hysterectomy Additional Past Surgical History / Comment(s): CARLOS 1996. RSO 1997. Bilateral breast implants placed in 2007 and these were removed in 2017. Abdominoplasty 2007. Melanoma removed from left lower back 2020. Colonoscopy 2021(next 5yrs). 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 - Past Family History Mother Family Medical History: Cancer Additional Family Medical History / Comment(s): Colon cancer. Uncles and grandmother had diabetes. Sister(s) Additional Family Medical History / Comment(s): Precancerous colon polyps. Medications and Allergies Home Medications Medication Instructions Recorded Confirmed Type Cholecalciferol [Vitamin D3 (25 25 mcg PO DAILY 08/14/21 02/15/24 History Mcg = 1000 Iu)] Multivit-Min/Iron/Folic/Lutein 1 each PO DAILY 08/14/21 02/15/24 History [Centrum Silver Women Tablet] Allergies Allergy/AdvReac Type Severity Reaction Status Date / Time Penicillins Allergy Mild Rash/Hives Verified 02/15/24 10:39 Exam Vital Signs Temp Pulse Resp BP Pulse Ox 02/15/24 10:40 98 F 66 16 147/76 98 Intake and Output 02/14/24 02/15/24 02/15/24 22:59 06:59 14:59 Other: Weight 63.503 kg Height 5 feet 3 inches, weight 140 pounds, BMI 25.6. This is a well-developed well-nourished white female who is alert and oriented times 3 in no acute distress. HEENT: Within normal limits. NECK: Supple without mass or thyromegaly. CHEST AND LUNGS: Clear to auscultation. HEART: Regular rate and rhythm. BREASTS: Are without mass or discharge. AXILLARY EXAM: Negative for adenopathy. BACK: Negative for CVA tenderness. ABDOMEN: Soft, nontender, without palpable masses. PELVIC EXAM: External genitalia appears normal mild atrophy. Vagina appears normal with mild atrophy. There is no evidence of prolapse. Bimanual examination is negative for mass or tenderness. RECTAL EXAM: Rectovaginal exam is negative for mass or tenderness and is negative for occult blood. EXTREMITIES: Nontender. IMPRESSION: 1. 63-year-old menopausal female status post CARLOS/BSO for benign reasons, with normal gynecologic exam. 2. History of osteoporosis. It has been several years since her last bone density test. PLAN: 1. Pap smears have been discontinued. 2. Self breast awareness was discussed with the patient. We have also discussed symptoms associated with inflammatory breast cancer. 3. Screening mammogram was done today. 4. Osteoporosis management was discussed. I have stressed the importance of adequate calcium, vitamin D and regular exercise. Recommended amounts of calcium and vitamin D were also discussed. I have again recommended that she look into taking medication for her osteoporosis. We have discussed options such as Fosamax, Boniva, as well as IV infusion bisphosphonates and Prolia injections. She will consider Fosamax or Boniva as well has her other options. Information on osteoporosis, Fosamax, and Boniva were given to the patient. If she would like to proceed with medication for osteoporosis, she will call and let me know. She states she recently had routine blood work done through her PCP. I have recommended redoing the bone density test, which will not change my recommendation for medication, but will give us a baseline study before starting medication. 5. She was advised to return in one year for her annual well woman exam and as needed.
== END | disposition home or self-care (01) ==
LOC: RADMAMWWP 10:05
PROVIDERS: ATTEND Obstetrics & Gynecology
DX: Z12.31 Encounter for screening mammogram for malignant neoplasm of breast (principal); Z78.0 Asymptomatic menopausal state; Z98.82 Breast implant status
CPT/HCPCS: 77063; 77067

== ENCOUNTER → 2024-12-05 | Outpatient (CLI) | payer BC ==
[2024-12-05 18:15] LABS: Blood Urea Nitrogen 13.7 mg/dL (9.0-27.0)
== END | disposition home or self-care (01) ==
LOC: LABWHC1 09:33
PROVIDERS: ATTEND Nurse Practitioner Acute Care
DX: R94.39 Abnormal result of other cardiovascular function study (principal); R07.9 Chest pain, unspecified
CPT/HCPCS: 36415; 82565; 84520

== ENCOUNTER → 2024-12-20 | Outpatient (CLI) | payer BC ==
--- NOTE | 2024-12-20 07:18 | MR ---
EXAMINATION TYPE: MR pancreas wo/w con DATE OF EXAM: 12/20/2024 6:56 AM COMPARISON: CTA aorta October 27, 2024 CLINICAL INDICATION: Female, 64 years old with history of R63.4 Abnormal weight loss, Stomach pain in to left side IV Contrast: 5.5 cc Gadobutrol (None if empty) CONTRAST: Standard multiplanar, multisequence MRI departmental protocol images were obtained without contrast a nd with 5.5 mL intravenous Gadobutrol gadolinium contrast. Imaging performed of the abdomen focusing on the pancreas FINDINGS: Pancreas: Pancreas remains overall normal in size. There is no concerning solid or cystic mass identi fied. No ductal dilatation is seen. Other: Lung bases are grossly clear. Liver is normal in size with diffuse signal dropout consistent w ith marked fatty infiltrative hepatocellular disease The gallbladder and spleen appear unremarkable. There is no suspicious adrenal mass. Kidneys are symmetric without concerning mass or hydronephrosis. No abnormal bowel dilatation is seen. Normal appearing appendix from the cecum is identified. No AAA . Osseous structures are intact. IMPRESSION: No suspicious pancreatic mass. No suspicious enhancing mass or abdominal adenopathy to ibrahim ggest malignancy. No acute findings are present. Diffuse fatty infiltration of liver is seen otherwis e unremarkable study. [facility], , 12/20/2024 7:16 AM
== END | disposition home or self-care (01) ==
LOC: RADMRIMAIN 06:00
PROVIDERS: ATTEND Internal Medicine Gastroenterology
DX: K76.0 Fatty (change of) liver, not elsewhere classified (principal); R63.4 Abnormal weight loss
CPT/HCPCS: 74183; A9585

== ENCOUNTER → 2025-03-20 | Outpatient (CLI) | payer BC ==
[2025-03-20 13:03] VITALS: BP 145/74; PULSE 70; RESP 17; TEMP 98.4
--- NOTE | 2025-03-20 13:34 | P.HPOB ---
History of Present Illness H&P Date: 03/20/25 Chief Complaint: The patient is here for her routine gynecologic exam and ma mmogram. This is a 64-year-old -0-1-3 with an LMP of 1996. The patient is status post CARLOS and later RSO for benign reasons. The patient is without gynecologic complaints at this time. Review of Systems The patient had lost about 17 pounds during the past year when she was not feeling well and having GI and abdominal problems. Her weight was as low as 123 pounds. After an extensive workup, they felt it was related to severe GERD. She has gained 13 pounds back. She denies current respiratory, cardiac, or GI problems. Past Medical History Past Medical History: Cancer, GERD/Reflux Additional Past Medical History / Comment(s): Melanoma stage 0 at left lower [id number]. back/neck pain. Osteoporosis declining medication. 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 History of Any Multi-Drug Resistant Organisms: None Reported Past Surgical History: Breast Surgery, Hysterectomy Additional Past Surgical History / Comment(s): CARLOS 1996. RSO 1997. Bilateral breast implants placed in 2007 and these were removed in 2017. Abdominoplasty 2007. Melanoma removed from left lower back 2020. Colonoscopy 2024(next 5yrs). EGD 2024 Past Psychological History: No Psychological Hx Reported Smoking Status: Never smoker Past Alcohol Use History: Occasional (0-2 drinks per week.) Past Drug Use History: None Reported Additional History: She has been since 1999. 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 - Past Family History Mother Family Medical History: Cancer Additional Family Medical History / Comment(s): Colon cancer. Uncles and grandmother had diabetes. Sister(s) Additional Family Medical History / Comment(s): Precancerous colon polyps. Medications and Allergies Home Medications Medication Instructions Recorded Confirmed Type Nitroglycerin Sl Tabs [Nitrostat] 0.4 mg SUBLINGUAL Q5M PRN 10/27/24 10/27/24 History Omeprazole 20 mg PO DAILY 10/27/24 10/27/24 History Amitriptyline HCl 10 mg PO DAILY 03/20/25 03/20/25 History Allergies Allergy/AdvReac Type Severity Reaction Status Date / Time Penicillins Allergy Mild Rash/Hives Verified 03/20/25 13:00 Exam Vital Signs Temp Pulse Resp BP Pulse Ox 03/20/25 13:01 98.4 F 70 17 145/74 98 Intake and Output 03/19/25 03/20/25 03/20/25 22:59 06:59 14:59 Other: Weight 61.689 kg Height 5 feet 3 inches, weight 136 pounds, BMI 24.1 This is a well-developed well-nourished white female who is alert and oriented times 3 in no acute distress. HEENT: Within normal limits. NECK: Supple without mass or thyromegaly. CHEST AND LUNGS: Clear to auscultation. HEART: Regular rate and rhythm. BREASTS: Are without mass or discharge. AXILLARY EXAM: Negative for adenopathy. BACK: Negative for CVA tenderness. ABDOMEN: Soft, nontender, without palpable masses. PELVIC EXAM: External genitalia appears normal mild atrophy. Vagina appears normal with mild atrophy. There is no evidence of prolapse. Bimanual examination is negative for mass or tenderness. RECTAL EXAM: Rectovaginal exam is negative for mass or tenderness and is negative for occult blood. EXTREMITIES: Nontender. IMPRESSION: 1. 64-year-old menopausal female status post CARLOS RSO for benign reasons, with normal gynecologic exam. 2. History of osteoporosis. The patient is again declining medication treatment or testing for osteoporosis. PLAN: 1. Pap smears have been discontinued. 2. Self breast awareness was discussed with the patient. We have also discussed symptoms associated with inflammatory breast cancer. 3. Screening mammogram will be done today. 4. Osteoporosis management was discussed. I have stressed the importance of adequate calcium, vitamin D and regular exercise. Recommended amounts of ca lcium and vitamin D were also discussed. Again discussed many types of medications which could be helpful for strengthening the bones including bisphosphonates, Prolia injections, calcitonin nasal spray, over daily injections. She again is declining any testing or treatment for this. She understands she is at greater risk for fracturing bones. She was instructed to call if she changes her mind about testing and/or treatment. She should try to avoid activities that put her at a greater risk for falling or breaking bones. 5. She was advised to return in one year for her annual well woman exam.
--- NOTE | 2025-03-20 14:33 | MM ---
Reason for Exam: Screening (asymptomatic). Last mammogram was performed 1 year(s) and 1 month(s) ago. Patient History: Menarche at age 15. First Full-Term at age 21. Right ovary removed at age 37. Hysterectomy at age 36. Postmenopausal. 2018, Bilateral Implant Removal. 04/01/2018, Bilateral Implant Removal. 12/2007, Bilateral Implants. Risk Values: Odilia 5 year model risk: 1.3%. NCI Lifetime model risk: 5.5%. Prior Study Comparison: 01/07/2022 Left Diagnostic Mammogram, [facility]. 01/12/2023 Bilateral MG 3D screening mammo w/cad, [facility]. 02/15/2024 Bilateral MG 3D screening mammo w/cad, [facility]. Tissue Density: The breasts are heterogeneously dense, which may obscure small masses. Findings: Analyzed By CAD. There is no suspicious group of microcalcifications or new suspicious mass in either breast. Overall Assessment: Negative, BI-RAD 1 Management: Screening Mammogram of both breasts in 1 year. . Patient should continue monthly self-breast exams. A clinical breast exam by your physician is recommended on an annual basis. This exam should not preclude additional follow-up of suspicious palpable abnormalities. Note on Odilia scores and lifetime risk: 1. A Odilia score greater than 3% is considered moderate risk. If this is the case, consider specialist referral to assess eligibility for a risk reducing agent. 2. If overall lifetime risk for the development of breast cancer is 20% or higher, the patient may qualify for future screening with alternating mammogram and breast MRI. [facility], , 03/20/2025 2:29 PM. Electronically signed and approved by: Tobin Cassidy M.D.
== END ==
LOC: WWCWWP 12:40
PROVIDERS: ATTEND Obstetrics & Gynecology
DX: Z01.419 Encounter for gynecological examination (general) (routine) without abnormal findings (principal); Z12.31 Encounter for screening mammogram for malignant neoplasm of breast; Z78.0 Asymptomatic menopausal state; Z90.710 Acquired absence of both cervix and uterus; Z87.39 Personal history of other diseases of the musculoskeletal system and connective tissue; Z88.0 Allergy status to penicillin
CPT/HCPCS: 77063; 77067